=== PATIENT | male | born 1985 | race Caucasian/White ===

== ENCOUNTER 2016-12-23 07:17 | Day surgery (SDC) | payer BC ==
[~2016-12-23] VITALS: Ht 175.3 cm; Wt 124.3 kg
[2016-12-23] MEDS ORDERED: CEFAZOLIN SOD 1 GM in D5W 50 ML IV ONE (08:00)
[2016-12-23 08:59] VITALS: O2SAT 97
[2016-12-23] MEDS ORDERED: PROPOFOL 200MG/ 20ML VIAL (DIPRIVAN) IV ONE (10:06)
[2016-12-23] MEDS ORDERED: BUPIVACAINE /DEX PF 0.75% SPINAL 2 ML AMP INJ ONE (10:06)
[2016-12-23] MEDS ORDERED: MEPERIDINE HCL/PF 100 MG/ML AMP IM ONE (10:06)
[2016-12-23] MEDS ORDERED: CEFAZOLIN 2 GM IVPB PREMIX 50 ML IV ONE (10:06)
[2016-12-23] MEDS ORDERED: fentaNYL CITRATE/PF 100 MCG/2 ML AMP IVP ONE (10:06)
[2016-12-23] MEDS ORDERED: SEVOFLURANE 15 MIN GAS INH ONE (10:06)
[2016-12-23] MEDS ORDERED: METOCLOPRAMIDE HCL 10 MG/2 ML VIAL IVP ONE (10:06)
[2016-12-23] MEDS ORDERED: LR 1,000 ML IV.SOLN IV ONE (10:06)
[2016-12-23] MEDS ORDERED: KETOROLAC TROMETHAMINE 30 MG VIAL IVP ONE (10:06)
[2016-12-23] MEDS ORDERED: POLYMYXIN 500,000/BACIT.10,000 UNITS in NS IRR 1 L IR ONE (10:26)
[2016-12-23] MEDS ORDERED: LR 1,000 ML IV ONE (11:02)
[2016-12-23] MEDS ORDERED: fentaNYL CITRATE/PF 100 MCG/2 ML AMP IVP PRN (11:15)
[2016-12-23] MEDS ORDERED: ePHEDrine sulfate 50 MG/ML VIAL IVP PRN (11:15)
[2016-12-23] MEDS ORDERED: NALOXONE HCL 0.4 MG/ML AMP (NARCAN) IVP PRN (11:15)
[2016-12-23] MEDS ORDERED: DIPHENHYDRAMINE INJ 50 MG/ML VIAL IVP PRN (11:15)
[2016-12-23] MEDS ORDERED: ONDANSETRON HCL 4 MG/2 ML VIAL IVP PRN ×2 (11:15)
[2016-12-23] MEDS ORDERED: NALBUPHINE HCL 10 MG/ML AMP IVP PRN (11:15)
[2016-12-23] MEDS ORDERED: HYDROmorphone 1 MG INJ. 1 MG/ML AMPUL IVP PRN (11:30)
[2016-12-23] MEDS ORDERED: HYDROcodone/ACETAMIN 5-325 MG TAB (NORCO/ VICODIN) PO PRN ×2 (11:30)
[2016-12-23 12:29] VITALS: BP 101/62; PULSE 71; RESP 16
[2016-12-23] MEDS ORDERED: D5/0.45 NS 1,000 ML IV SCH (15:00)
== END 2016-12-23 13:25 | disposition home or self-care (01) ==
LOC: SDS 07:17 → SMU 07:20 → SDS 13:25
PROVIDERS: ATTEND Colon & Rectal Surgery
DX: K40.90 Unilateral inguinal hernia, without obstruction or gangrene, not specified as recurrent (principal); E66.01 Morbid (severe) obesity due to excess calories; A41.9 Sepsis, unspecified organism
CPT/HCPCS: 49505; C1781; J0690 ×2; J1885; J2175; J2704; J2765; J3010; J3490; J7060; J7120